=== PATIENT | male | born 1955 | race Caucasian/White ===

== ENCOUNTER 2018-11-27 16:38 | Inpatient (IN) | payer MEDICAID ==
[2018-11-27] MEDS ORDERED: ceFAZolin 2 GM/DEXTROSE 100 ML IV ONE ×2 (16:52→18:52)
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
[2018-11-27 17:08] LABS: PLATELET COUNT 272 10^3/uL (150-400)
[2018-11-27 17:24] LABS: INR 0.92 (0.83-1.16)
[2018-11-27] MEDS ORDERED: LORazepam 2 MG/ML INJ ONE ×2 (18:01→21:24)
[2018-11-27] MEDS ORDERED: LORazepam 2 MG/ML INJ IVP ONE (18:02)
[2018-11-27] MEDS ORDERED: BUPIVACAINE 0.5% 30 ML SDV ONE (18:33)
[2018-11-27] MEDS ORDERED: POLYMYXIN B SULFATE 500,000 UNIT/10 ML SYR IRR ONE (18:33)
[2018-11-27] MEDS ORDERED: LR 1,000 ML IV ONE (18:34)
[2018-11-27] MEDS ORDERED: FLUMAZENIL 0.5 MG/5 ML MDV IVP PRN (18:51)
[2018-11-27] MEDS ORDERED: CEFAZOLIN 2 GM/DEXTROSE/100 ML BAG IV ONE (18:59)
[2018-11-27] MEDS ORDERED: LR 1,000 ML IV SCH (19:00)
[2018-11-27] MEDS ORDERED: PROPOFOL 200 MG/20 ML VIAL ONE (19:11)
[2018-11-27] MEDS ORDERED: HYDROmorphONE/DILAUDID 2 MG/ML INJ ONE (19:11)
[2018-11-27] MEDS ORDERED: PHENYLEPHRINE HCL 100 MCG/ML SYR ONE (19:26)
[2018-11-27] MEDS ORDERED: ROCURONIUM 50 MG/5 ML VIAL ONE ×2 (19:26→20:10)
[2018-11-27] MEDS ORDERED: ONDANSETRON 4 MG/2 ML VIAL IVP PRN ×2 (19:36→20:45)
[2018-11-27] MEDS ORDERED: DIAZEPAM 5 MG/ML 1 ML SYR IVP PRN (19:36)
[2018-11-27] MEDS ORDERED: HYDROCODONE/APAP 5/325 TAB PO PRN (19:36)
[2018-11-27] MEDS ORDERED: oxyCODONE IR 5 MG TAB PO PRN (19:36)
[2018-11-27] MEDS ORDERED: NALOXONE HCL 0.4 MG/ML INJ IVP PRN (19:36)
[2018-11-27] MEDS ORDERED: fentaNYL 100 MCG/2 ML INJ IVP PRN (19:36)
--- NOTE | 2018-11-27 19:37 | PDANEPAE ---
ANE History of Present Illness R Tib ORIF ANE Past Medical History - Cardiovascular History Hx Hypertension: No Hx Arrhythmias: No - Pulmonary History Hx Oxygen in Use at Home: No Hx Sleep Apnea: No - Endocrine History Hx Diabetes: No ANE Review of Systems Review of Systems: ANE Patient History - Allergies Allergies/Adverse Reactions: No Known Allergies Allergy (Unverified 11/27/18 16:47) - Home Medications Home Medications: NK [No Known Home Meds] 11/27/18 [Last Taken Unknown] - NPO status NPO Since - Liquids (Date): 11/27/18 NPO Since - Solids (Date): 11/27/18 - Smoking Hx Smoking Status: Current every day smoker ANE Labs/Vital Signs - Labs Result Diagrams: 11/27/18 17:00 11/27/18 17:00 - Vital Signs Blood Pressure: 116/80 Heart Rate: 79 Respiratory Rate: 15 O2 Sat (%): 96 Height: 182.88 cm Weight: 81.647 kg ANE Physical Exam - Airway Neck exam: FROM Mallampati Score: Class 2 Mouth exam: normal dental/mouth exam - Pulmonary Pulmonary: clear to auscultation - Cardiovascular Cardiovascular: regular rate and rhythym - ASA Status ASA Status: II, E MARCO Anesthesia Plan Anesthesia Plan: general endotracheal anesthesia
[2018-11-27] MEDS ORDERED: DEXAMETHASONE 4 MG/ML VIAL ONE (20:11)
[2018-11-27] MEDS ORDERED: ONDANSETRON 4 MG/2 ML VIAL ONE (20:11)
[2018-11-27] MEDS ORDERED: ONDANSETRON DISINTEGRATING 4 MG TAB PO PRN (20:45)
[2018-11-27] MEDS ORDERED: PROMETHAZINE HCL 25 MG/ML INJ IVP PRN (20:45)
[2018-11-27] MEDS ORDERED: NS 1,000 ML IV SCH (20:45)
[2018-11-27] MEDS ORDERED: HYDROmorphONE/DILAUDID 1 MG/ML INJ IVP PRN (20:45)
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
[2018-11-27] MEDS ORDERED: DIAZEPAM 5 MG/ML 1 ML SYR ONE (21:23)
--- NOTE | 2018-11-27 21:28 | POSTANESTH ---
Post Anesthetic Evaluation Cardiovascular Status: Normal, Stable Respiratory Status: Normal, Stable Level of Consciousness/Mental Status: Can Participate in Eval, Mildly Sleepy, Arousable Pain Control: Adequate, Prn Tx Ordered Nausea/Vomiting Control: Adequate, Prn Tx Ordered
--- NOTE | 2018-11-27 21:31 | POSTOPPROG ---
Post Op Note Date of Operation: 11/27/18 Surgeon: Trav Davis Supervisor Paste Mixing: Co-Surgeon MD Garry Anesthesiologist: Shobha Anesthesia: GET(General Endotracheal) Pre-op Diagnosis: R open tib/fib fx Post-op Diagnosis: same Procedure: R tibia ORIF, closed reduction proximal fibula Inf/Abcess present in the surg proc area at time of surgery?: No EBL: 50-100 (50)
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
[2018-11-28] MEDS: ceFAZolin 2 GM/DEXTROSE 100 ML IV SCH ×2 (02:55→10:45)
[2018-11-28 05:36] LABS: PLATELET COUNT 247 10^3/uL (150-400)
[2018-11-28] MEDS: ACETAMINOPHEN 325 MG TAB PO PRN ×2 (06:49→16:11)
[2018-11-28] MEDS: MULTIVITAMINS 1 EACH TAB PO SCH (07:45)
[2018-11-28] MEDS: ENOXAPARIN 40 MG/0.4 ML SYR SC SCH (07:47)
[2018-11-28] MEDS: FOLIC ACID 1 MG TAB PO SCH (07:47)
[2018-11-28] MEDS: oxyCODONE IR 5 MG TAB PO PRN ×4 (07:53→18:39)
[2018-11-28] MEDS: THIAMINE HCL 500 MG in NS 100 ML IV SCH (09:56)
[2018-11-28] MEDS ORDERED: POLYETHYLENE GLYCOL 3350 17 GM PKT PO PRN (10:25)
[2018-11-28] MEDS ORDERED: LACTULOSE 20 GM/30 ML UDCUP PO PRN (10:25)
[2018-11-28] MEDS ORDERED: MAGNESIUM HYDROXIDE 30 ML UDCUP PO PRN (10:25)
[2018-11-28] MEDS ORDERED: BISACODYL 10 MG SUPP PR PRN (10:25)
[2018-11-28] MEDS ORDERED: SENNOSIDES/DOCUSATE SODIUM TAB PO ONE (11:30)
[2018-11-28] MEDS: SENNOSIDES/DOCUSATE SODIUM TAB PO SCH (11:34)
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
--- NOTE | 2018-11-28 14:23 | SOAPPROG ---
SOAP Progress Note Assessment/Plan: Assessment: 63-year-old male postop day 1 status post Right tibia open reduction internal fixation Plan: foot Flat weight-bearing to the right lower extremity x6 weeks DVT prophylaxis: Foot pumps SCDs Lovenox 40 mg daily IS 10 times per hour Disposition: Pending 11/28/18 14:20 Subjective: Pain relatively well controlled. Denies fevers chills nausea vomiting chest pain shortness of breath numbness or tingling. Participated with physical therapy this morning Objective: Vital Signs Temp Pulse Resp BP Pulse Ox 37.1 C 96 20 155/93 H 92 11/28/18 11:51 11/28/18 11:51 11/28/18 11:51 11/28/18 11:51 11/28/18 11:51 Laboratory Results 11/28/18 04:25 11/28/18 04:25 11/27/18 11/28/18 11/29/18 05:59 05:59 05:59 Intake Total 2100 766 Output Total 570 1025 Balance 1530 -259 PT 12.0 SEC (12.0-15.0) 11/27/18 17:00 INR 0.92 (0.83-1.16) 11/27/18 17:00 Awake alert and oriented x3 No acute distress Easy nonlabored breathing Right lower extremity: Dayne wrap and knee immobilizer in place well fitting Leg compartments soft and compressible Motor intact to EHL FHL tibialis anterior gastrocsoleus Sensation intact to light touch L4-S1 Palpable DP PT pulses ICD10 Worksheet Patient Problems: Problems Problem Status Onset Tibia/fibula fracture, shaft Acute
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
--- NOTE | 2018-11-28 16:11 | HOSPPROG ---
Hospitalist Progress Note Assessment/Plan: 63 YO m W open tib fib, alcoholism alcoholism: risk for withdrawal continue ciwa pain: well controlled tib fib: s/p operative repair proph :[facility] Subjective: case d/w dr torres. paIN IMPROVED Objective: Vital Signs Temp Pulse Resp BP Pulse Ox 37.4 C 92 21 H 171/98 H 94 11/28/18 15:09 11/28/18 15:09 11/28/18 15:09 11/28/18 15:09 11/28/18 15:09 Laboratory Results 11/28/18 04:25 11/28/18 04:25 11/27/18 11/28/18 11/29/18 05:59 05:59 05:59 Intake Total 2100 766 Output Total 570 1925 Balance 1530 -1159 PT 12.0 SEC (12.0-15.0) 11/27/18 17:00 INR 0.92 (0.83-1.16) 11/27/18 17:00 - Physical Exam Constitutional: no apparent distress, appears nourished Eyes: PERRL, anicteric sclera Ears, Nose, Mouth, Throat: moist mucous membranes, hearing normal Cardiovascular: regular rate and rhythym, no murmur, rub, or gallop Respiratory: no respiratory distress, no rales or rhonchi Gastrointestinal: normoactive bowel sounds, soft, non-tender abdomen Genitourinary: no bladder fullness Skin: warm, normal color Musculoskeletal: full muscle strength Neurologic: AAOx3 ICD10 Worksheet Patient Problems: Problems Problem Status Onset Tibia/fibula fracture, shaft Acute
[2018-11-28] MEDS: LORazepam 2 MG/ML INJ IVP PRN (16:12)
[2018-11-29] MEDS: ACETAMINOPHEN 325 MG TAB PO PRN (05:31)
[2018-11-29] MEDS: ENOXAPARIN 40 MG/0.4 ML SYR SC SCH (08:20)
[2018-11-29] MEDS: MULTIVITAMINS 1 EACH TAB PO SCH (08:20)
[2018-11-29] MEDS: THIAMINE HCL 500 MG in NS 100 ML IV SCH (08:21)
[2018-11-29] MEDS: FOLIC ACID 1 MG TAB PO SCH (08:21)
[2018-11-29] MEDS: SENNOSIDES/DOCUSATE SODIUM TAB PO SCH ×2 (08:21→20:06)
--- NOTE | 2018-11-29 09:43 | SOAPPROG ---
<Mell Vera D - Last Filed: 11/29/18 09:47> SOAP Progress Note Assessment/Plan: Assessment: s/p right open tibia ORIF - POD 2 Plan: Continue PT - Toe Touch WBing with brace locked in extension when moving around. Brace can be unlocked 0-40 degrees of flexion when performing gentle PROM. No full weight bearing 6-8 weeks. Continue pain management - tolerating oral medication Continue VTE ppx - lovenox 40 mg SC daily, SCDs, ankle pumps IS 10 times per hour Disposition: pending Subjective: Patient reports his right knee/lower leg is feeling better than yesterday. He denies shortness of breath, chest pain, fever, chills, nausea, vomiting. No major complaints or concerns at this time. Objective: Vital Signs Temp Pulse Resp BP Pulse Ox 36.7 C 81 18 153/101 H 95 11/29/18 07:47 11/29/18 07:47 11/29/18 07:47 11/29/18 07:47 11/29/18 07:47 Laboratory Results 11/28/18 04:25 11/28/18 04:25 11/28/18 11/29/18 11/30/18 05:59 05:59 05:59 Intake Total 2100 2266 Output Total 570 4275 1000 Balance 1530 -2009 -1000 PT 12.0 SEC (12.0-15.0) 11/27/18 17:00 INR 0.92 (0.83-1.16) 11/27/18 17:00 Patient resting comfortably in bed, no acute distress. He is alert and oriented x 3. RLE: Knee brace is in place, fitting well. Surgical wound dressings are clean, dry and intact. Motor function intact at gastroc, soleus, anterior tibialis, EHL and FHL. Intact to light touch distally. Palpable DP and PT pulses. ICD10 Worksheet Patient Problems: Problems Problem Status Onset Tibia/fibula fracture, shaft Acute <Trav Davis W - Last Filed: 12/02/18 17:49> SOAP Progress Note Assessment/Plan: Assessment:POD #5 s/p R tibia ORIF Plan: Agree with above. Mild to moderate erythema - Dr. Monae with ID consulted and discussed. Possibilty related to postoperative blood pooling. Pt if AF. New CBC ordered. Will continue to monitor 12/02/18 17:45 Objective: Vital Signs Temp Pulse Resp BP Pulse Ox 37.2 C 77 16 144/87 H 94 12/02/18 16:00 12/02/18 16:00 12/02/18 16:00 12/02/18 16:00 12/02/18 16:00 Laboratory Results 12/02/18 17:26 11/28/18 04:25 12/01/18 12/02/18 12/03/18 05:59 05:59 05:59 Intake Total 2750 3400 2100 Output Total 3050 3450 2000 Balance -300 -50 100 PT 12.0 SEC (12.0-15.0) 11/27/18 17:00 INR 0.92 (0.83-1.16) 11/27/18 17:00
[2018-11-29] MEDS: HYDROCODONE/APAP 5/325 TAB PO PRN ×2 (10:07→20:06)
--- NOTE | 2018-11-29 11:56 | HOSPPROG ---
Hospitalist Progress Note Objective: Vital Signs Temp Pulse Resp BP Pulse Ox 37.0 C 83 21 H 153/98 H 96 11/29/18 11:13 11/29/18 11:13 11/29/18 11:13 11/29/18 11:13 11/29/18 11:13 Laboratory Results 11/28/18 04:25 11/28/18 04:25 11/28/18 11/29/18 11/30/18 06:59 06:59 06:59 Intake Total 2866 1500 Output Total 1270 3575 1000 Balance 1596 -2075 -1000 PT 12.0 SEC (12.0-15.0) 11/27/18 17:00 INR 0.92 (0.83-1.16) 11/27/18 17:00 ICD10 Worksheet Patient Problems: Problems Problem Status Onset Tibia/fibula fracture, shaft Acute
--- NOTE | 2018-11-29 12:02 | HOSPPROG ---
Hospitalist Progress Note Assessment/Plan: DIAGNOSES: * Open tib-fib fracture on right due to trauma, status post ORIF * Alcoholism; currently no signs of withdrawal * Suspect thiamine deficiency receiving replacement * Mild hypertension PLANS: * Strongly encouraged the patient to follow weight-bearing and other activity instructions as well as instructions for use of his brace quite carefully * Continue to follow for any signs of withdrawal but there are no signs of withdrawal at this point and it seems unlikely that he will have any problem with this * Continue thiamin replacement * DVT prophylaxis From Internal Medicine standpoint he is stable for discharge at any time when okayed by Orthopedics SUBJECTIVE: Patient's pain is more intermittent, mostly hurts with activity at this point No other symptoms No anxiety or tremor OBJECTIVE Vitals reviewed: Mild hypertension otherwise normal without fever Exam: alert oriented relaxed watching TV skin warm dry color ok resps not labored lungs clear BSs heart regular abd soft nondistended nontender, bowel sounds present limbs leg is in Dayne wraps and brace, some edema at toes, moves toes with good strength no loss of sensation iv site ok Objective: Vital Signs Temp Pulse Resp BP Pulse Ox 37.0 C 83 21 H 153/98 H 96 11/29/18 11:13 11/29/18 11:13 11/29/18 11:13 11/29/18 11:13 11/29/18 11:13 Laboratory Results 11/28/18 04:25 11/28/18 04:25 11/28/18 11/29/18 11/30/18 06:59 06:59 06:59 Intake Total 2866 1500 Output Total 1270 3575 1000 Balance 1596 -2075 -1000 PT 12.0 SEC (12.0-15.0) 11/27/18 17:00 INR 0.92 (0.83-1.16) 11/27/18 17:00 ICD10 Worksheet Patient Problems: Problems Problem Status Onset Tibia/fibula fracture, shaft Acute
[2018-11-29] MEDS: LORazepam 2 MG/ML INJ IVP PRN (20:07)
[2018-11-30] MEDS: THIAMINE HCL 500 MG in NS 100 ML IV SCH (08:35)
[2018-11-30] MEDS: SENNOSIDES/DOCUSATE SODIUM TAB PO SCH ×2 (08:35→20:38)
[2018-11-30] MEDS: FOLIC ACID 1 MG TAB PO SCH (08:35)
[2018-11-30] MEDS: ENOXAPARIN 40 MG/0.4 ML SYR SC SCH (08:35)
[2018-11-30] MEDS: MULTIVITAMINS 1 EACH TAB PO SCH (08:35)
[2018-11-30] MEDS: HYDROCODONE/APAP 5/325 TAB PO PRN ×3 (08:45→20:37)
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
--- NOTE | 2018-11-30 13:16 | ASMTCMCOM ---
CM Note CM Note Notes: [facility] pt. [facility] and [facility] have responded that they're interested. D/C Plan: Pending [facility], Date Signed: 11/30/2018 01:15 PM Electronically Signed By:Ritika Mehta
[2018-12-01] MEDS: ENOXAPARIN 40 MG/0.4 ML SYR SC SCH (08:03)
[2018-12-01] MEDS: MULTIVITAMINS 1 EACH TAB PO SCH (08:04)
[2018-12-01] MEDS: FOLIC ACID 1 MG TAB PO SCH (08:04)
[2018-12-01] MEDS: SENNOSIDES/DOCUSATE SODIUM TAB PO SCH ×2 (08:04→20:11)
[2018-12-01] MEDS: THIAMINE HCL 100 MG TAB PO SCH (08:04)
[2018-12-01] MEDS: HYDROCODONE/APAP 5/325 TAB PO PRN ×3 (08:12→20:10)
--- NOTE | 2018-12-01 10:57 | ASMTCMCOM ---
CM Note CM Note Notes: Pt has been accepted by [facility] and cleared by hospitalist for discharge. [facility] eval pending for payment approval to [facility] which will likely happen Sunday or Sunday. Message left for [facility] today by CM inquiring about time frame for eval. Pt provided information on [facility]. CM to follow. D/C Plan: [facility] pending [facility] eval. Date Signed: 12/01/2018 10:56 AM Electronically Signed By:Monique Colmenares
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
--- NOTE | 2018-12-01 12:31 | PDIAF ---
- Diagnosis Code Status: Full Code - Medication Management Discharge Medications: electronically signed and located in the Home Medication List. - Orders Diet Recommendation: no restrictions on diet Diet Texture: Regular Texture Diet Activity/Weight Bearing Restrictions: Toe Touch WBing with brace locked in extension when moving around. Brace can be unlocked 0-40 degrees of flexion when performing gentle PROM. No full weight bearing 6-8 weeks. Additional Instructions: Continue chemical DVT prophylaxis x4wks Contact Dr Trav Davis for all questions regarding the patients leg/surgical wound/weight bearing or physical therapy. - Follow Up Care Current Providers and Referrals: NONE *PRIMARY CARE P,. [Primary Care Provider] - As per Instructions
--- NOTE | 2018-12-01 14:21 | ASMTCMCOM ---
CM Note CM Note Notes: ADDENDUM: Pt given ETOH resources folder and [facility] brochures. Pt eager to pursue recovery at [place]. Per pt request, email send to [facility] to connect with pt. D/C Plan: [facility] pending [facility] eval Date Signed: 12/01/2018 02:20 PM Electronically Signed By:Monique Colmenares
[2018-12-01] MEDS: ACETAMINOPHEN 325 MG TAB PO PRN (20:10)
[2018-12-02] MEDS: HYDROCODONE/APAP 5/325 TAB PO PRN ×5 (04:19→22:45)
[2018-12-02] MEDS: FOLIC ACID 1 MG TAB PO SCH (09:45)
[2018-12-02] MEDS: MULTIVITAMINS 1 EACH TAB PO SCH (09:45)
[2018-12-02] MEDS: ENOXAPARIN 40 MG/0.4 ML SYR SC SCH (09:45)
[2018-12-02] MEDS: THIAMINE HCL 100 MG TAB PO SCH (09:46)
[2018-12-02] MEDS: SENNOSIDES/DOCUSATE SODIUM TAB PO SCH ×2 (09:46→21:37)
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
--- NOTE | 2018-12-02 16:36 | SOAPPROG ---
SOAP Progress Note Assessment/Plan: Assessment: s/p right open tibia ORIF - POD 5 (surgery 11-27-18) Plan: Continue PT - Toe Touch WBing with brace locked in extension when moving around. Brace can be unlocked 0-40 degrees of flexion when performing gentle PROM. No full weight bearing 6-8 weeks. Continue pain management - tolerating oral medication Continue VTE ppx - lovenox 40 mg SC daily, SCDs, ankle pumps IS 10 times per hour Disposition: pending - awaiting insurance approval for SNF ID consult - possible cellulitis CBC ordered I notified Dr. Davis of the tenderness, erythema over the right lower leg. He will come by later this afternoon to see the patient Subjective: Patient states his right knee/lower leg is feeling a bit more sore today and has not had pain medication recently. He reports feeling a bit chilled earlier, but not feverish. He denies significant calf pain. He denies shortness of breath , chest pain, nausea. He denies numbness and tingling in the right lower extremity. Objective: Vital Signs Temp Pulse Resp BP Pulse Ox 36.9 C 75 20 146/97 H 92 12/02/18 12:45 12/02/18 12:45 12/02/18 12:45 12/02/18 12:45 12/02/18 12:45 Laboratory Results 11/28/18 04:25 11/28/18 04:25 12/01/18 12/02/18 12/03/18 05:59 05:59 05:59 Intake Total 2750 3400 1200 Output Total 3050 3450 1675 Balance -300 -50 -475 PT 12.0 SEC (12.0-15.0) 11/27/18 17:00 INR 0.92 (0.83-1.16) 11/27/18 17:00 Patient resting comfortably in bed, no acute distress. Awake, alert and oriented x 3. RLE: Hinged knee brace is in place. REHANA wraps are clean, dry and intact. REHANA wraps were removed. Tegaderm is in place over incisions, these were kept in place. There is a small amount of blood present on the Tegaderm. Mild diffuse edema at the knee and mild edema distally in the toes. There is scab formation at the proximal medial aspect of the lower leg. The proximal 2/3 of the lower leg is edematous, blanching erythema is also present. Lower leg is mildly warm to the touch. Tenderness primarily over the pretibial region. No significant calf tenderness. Calf is relatively soft. He can actively DF and PF the right foot and great toe. Palpable DP and PT pulses. Intact to light touch distally. New REHANA wraps were applied. ICD10 Worksheet Patient Problems: Problems Problem Status Onset Tibia/fibula fracture, shaft Acute
[2018-12-02 17:39] LABS: PLATELET COUNT 348 10^3/uL (150-400)
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
[2018-12-03] MEDS: SENNOSIDES/DOCUSATE SODIUM TAB PO SCH ×2 (09:41→21:04)
[2018-12-03] MEDS: MULTIVITAMINS 1 EACH TAB PO SCH (09:41)
[2018-12-03] MEDS: ENOXAPARIN 40 MG/0.4 ML SYR SC SCH (09:41)
[2018-12-03] MEDS: THIAMINE HCL 100 MG TAB PO SCH (09:41)
[2018-12-03] MEDS: FOLIC ACID 1 MG TAB PO SCH (09:41)
[2018-12-03] MEDS: HYDROCODONE/APAP 5/325 TAB PO PRN ×3 (12:58→23:22)
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
--- NOTE | 2018-12-03 13:35 | SOAPPROG ---
SOAP Progress Note Assessment/Plan: Assessment: s/p right open tibia ORIF - POD 6 (surgery 11-27-18) Plan: Continue PT - Toe Touch WBing with brace locked in extension when moving around. Brace can be unlocked 0-40 degrees of flexion when performing gentle PROM. No full weight bearing until 6-8 weeks post-operative. Continue pain management - tolerating oral medication Continue VTE ppx - lovenox 40 mg SC daily, SCDs, ankle pumps IS 10 times per hour Disposition: pending - awaiting approval for [facility] ID consult - Dr. Monae felt erythema was due to blood pooling in right lower leg rather than cellulitis. No antibiotics. ID will continue to follow patient Subjective: Patient states he is feeling pretty good at this time, he just took a pain pill therefore his current pain is mild. He is hoping to go to [facility] soon to continue his recovery. He denies shortness of breath, chest pain, fever, chills , nausea, calf pain, numbness or tingling in the right lower extremity. No major complaints or concerns at this time. Objective: Vital Signs Temp Pulse Resp BP Pulse Ox 37.0 C 74 18 152/99 H 93 12/03/18 11:53 12/03/18 11:53 12/03/18 11:53 12/03/18 11:53 12/03/18 11:53 Laboratory Results 12/02/18 17:26 11/28/18 04:25 12/02/18 12/03/18 12/04/18 05:59 05:59 05:59 Intake Total 3400 3525 Output Total 3450 3225 1750 Balance -50 300 -1750 PT 12.0 SEC (12.0-15.0) 11/27/18 17:00 INR 0.92 (0.83-1.16) 11/27/18 17:00 Patient resting comfortably in bed, no acute distress. He is awake, alert and oriented x 3. RLE: Knee brace is in place, fitting well. REHANA wraps and wound dressings are clean, dry and intact. REHANA wraps were spread apart to visualize underlying skin. There is still erythema and edema diffusely about the right lower leg, it does not extend into the foot or toes. It appears slightly better than yesterday. Tenderness along the proximal-mid tibial shaft. Calf is soft, tender. He can actively DF and PF right foot and great toe against resistance. Strong, palpable DP pulse. Intact to light touch distally. ICD10 Worksheet Patient Problems: Problems Problem Status Onset Tibia/fibula fracture, shaft Acute
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
--- NOTE | 2018-12-03 14:16 | PDIAF ---
- Diagnosis Diagnosis: open tib fib fx Code Status: Full Code - Medication Management Discharge Medications: electronically signed and located in the Home Medication List. PICC Care - Routine: N/A - Orders Services needed: Physical Therapy, Occupational Therapy Diet Recommendation: no restrictions on diet Diet Texture: Regular Texture Diet Activity/Weight Bearing Restrictions: Toe Touch WBing with brace locked in extension when moving around. Brace can be unlocked 0-40 degrees of flexion when performing gentle PROM. No full weight bearing 6-8 weeks. Additional Instructions: Continue chemical DVT prophylaxis x4wks Contact Dr Trav Davis for all questions regarding the patients leg/surgical wound/weight bearing or physical therapy. Continue PT - Toe Touch WBing with brace locked in extension when moving around. Brace can be unlocked 0-40 degrees of flexion when performing gentle PROM. No full weight bearing until 6-8 weeks post-operative. - Follow Up Care Current Providers and Referrals: Trav Davis MD [Medical Doctor] - NONE *PRIMARY CARE P,. [Primary Care Provider] - As per Instructions
--- NOTE | 2018-12-03 16:54 | PCMIDPN ---
Assessment/Plan: Assessment/Plan: * Right lower extremity erythema: Clinical findings remain most compatible with pool blood products rather than cellulitis. Overall intensity of erythema over distal lower extremity less today. Continues to have fluctuant area medial to incision which likely represents hematoma. Suspect this less likely represents postoperative infection. No significant elevation in white blood cell count. Plan continued observation off antibiotic therapy. 12/03/18 16:51 Subjective: Patient with less knee swelling. Describes less pain in right lower extremity. Objective: Vital Signs Temp Pulse Resp BP Pulse Ox 37.1 C 83 18 176/102 H 93 12/03/18 15:36 12/03/18 15:36 12/03/18 15:36 12/03/18 15:36 12/03/18 15:36 Laboratory Results 12/02/18 17:26 11/28/18 04:25 12/02/18 12/03/18 12/04/18 05:59 05:59 05:59 Intake Total 3400 3525 Output Total 3450 3225 2300 Balance -50 300 -2300 No antibiotic therapy Temperature 37.1 degrees - Physical Exam General Appearance: alert, no apparent distress EENT: No scleral icterus Extremities: inflammation (Right lower extremity with less intense erythema distally; similar erythema present over anterior lower extremity medial to surgical incision; fluctuant area palpable medial to incision with scant serous drainage; no purulent drainage present; extensive ecchymoses present over calf, popliteal fossa and posterior thigh) Abdomen: non-tender, No distended Lymphatic: other (No tenderness in right thigh in lymphatic distribution) ICD10 Worksheet Patient Problems: Problems Problem Status Onset Tibia/fibula fracture, shaft Acute
[2018-12-04 07:26] VITALS: BP 139/93
[2018-12-04] MEDS: ENOXAPARIN 40 MG/0.4 ML SYR SC SCH (07:42)
[2018-12-04] MEDS: SENNOSIDES/DOCUSATE SODIUM TAB PO SCH (07:42)
[2018-12-04] MEDS: HYDROCODONE/APAP 5/325 TAB PO PRN (07:43)
[2018-12-04] MEDS: THIAMINE HCL 100 MG TAB PO SCH (07:43)
[2018-12-04] MEDS: MULTIVITAMINS 1 EACH TAB PO SCH (07:43)
[2018-12-04] MEDS: FOLIC ACID 1 MG TAB PO SCH (07:43)
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
--- NOTE | 2018-12-04 10:24 | ASMTDCNOTE ---
Case Management Discharge Discharge Order Complete? Answers: Yes Patient to Obtain Answers: Other Notes: [facility] Medications Transportation Arranged Answers: Other Notes: [facility] w/c transpor t Transport will Pick (Date 12/04/2018 10:30 AM & Time) EMTALA Complete Answers: No Case Management Transport Answers: No Form Complete Faxed Final Orders Answers: Yes Agency/Facility Transfer Answers: Yes Report Printed & Faxed to Receiving Agency Family Notified Answers: No Discharge Comments Notes: Pts case discussed w/ eKlli Benoit NP. Pt is being d/c'd today. DC orders sent. CHANELL Yost will call to give report. CM available for changes. Plan: [facility] Date Signed: 12/04/2018 10:23 AM Electronically Signed By:GHISLAINE Zaragoza
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
--- NOTE | 2018-12-04 10:33 | SOAPPROG ---
SOAP Progress Note Assessment/Plan: Assessment: s/p right open tibia ORIF - POD 7 (surgery 11-27-18) Plan: Discharge today to [facility] Continue PT - Toe Touch WBing with brace locked in extension when moving around. Brace can be unlocked 0-40 degrees of flexion when performing gentle PROM. No full weight bearing until 6-8 weeks post-operative. Continue pain management - tolerating oral medication Continue VTE ppx - lovenox 40 mg SC daily, SCDs, ankle pumps Subjective: Patient states he is feeling better today, pain continues to improve. States he feels ready to leave the hospital and go to [facility] today. His pain is being controlled with oral medication. He denies shortness of breath, chest pain, fever, chills, nausea. Objective: Vital Signs Temp Pulse Resp BP Pulse Ox 36.9 C 68 16 139/93 H 96 12/04/18 07:26 12/04/18 07:26 12/04/18 07:26 12/04/18 07:26 12/04/18 07:26 Laboratory Results 12/02/18 17:26 11/28/18 04:25 12/03/18 12/04/18 12/05/18 05:59 05:59 05:59 Intake Total 3525 1600 500 Output Total 3225 2975 850 Balance 300 -1375 -350 PT 12.0 SEC (12.0-15.0) 11/27/18 17:00 INR 0.92 (0.83-1.16) 11/27/18 17:00 Patient resting comfortably in bed, no acute distress. RLE: Knee brace in place , fitting well. REHANA wraps are clean, dry and intact. REHANA wraps were spread apart to visualize skin and wound dressings. There is some bloody drainage on the proximal wound dressing. Erythema appears about the same yesterday. Mild fluctuance medial to incision. No purulent drainage. Ecchymosis along the posterior lower leg and knee. Mild calf tenderness. Lower leg compartments are soft, negative Homans sign. He can actively DF and PF his right foot and great toe. Grossly NVI distally. ICD10 Worksheet Patient Problems: Problems Problem Status Onset Tibia/fibula fracture, shaft Acute
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
== END 2018-12-04 11:09 | DRG 313 ==
LOC: F3N 22:43
PROVIDERS: ADMIT Internal Medicine; ATTEND Internal Medicine
PROC: 0QSJ34Z Reposition Right Fibula with Internal Fixation Device, Percutaneous Approach (ICD-10-PCS; principal; 2018-11-27 19:00)
PROC: 0QSG04Z Reposition Right Tibia with Internal Fixation Device, Open Approach (ICD-10-PCS; principal; 2018-11-27 19:00)
DX: S82.251B Displaced comminuted fracture of shaft of right tibia, initial encounter for open fracture type I or II (principal); G92 Toxic encephalopathy; S82.451B Displaced comminuted fracture of shaft of right fibula, initial encounter for open fracture type I or II; Y08.02XA Assault by strike by baseball bat, initial encounter; Y92.513 Shop (commercial) as the place of occurrence of the external cause; Z59.0 Homelessness; F10.220 Alcohol dependence with intoxication, uncomplicated; R73.9 Hyperglycemia, unspecified; I10 Essential (primary) hypertension; Y90.8 Blood alcohol level of 240 mg/100 ml or more; Z72.0 Tobacco use
CPT/HCPCS: 96374; 97116-GP; 97161-GP; 97165-GO; 97535-GO; C1713; G0480; J0690; J1100; J1170; J1650; J2060; J2370; J2405; J2704; J3360; J3411; L1832